=== PATIENT | male | born 1985 | race Native Hawaiian/Other Pacific Islander ===

== ENCOUNTER 2019-06-30 16:48 | Emergency (ER) | payer OTHER ==
[~2019-06-30] VITALS: Ht 188 cm; Wt 111.1 kg
[2019-06-30 18:08] VITALS: BP 157/100; TEMP 98.4
== END 2019-06-30 18:08 | disposition home or self-care (01) ==
LOC: ED 16:48
DX: S43.401A Unspecified sprain of right shoulder joint, initial encounter (principal); W51.XXXA Accidental striking against or bumped into by another person, initial encounter; Y35.811A Legal intervention involving manhandling, law enforcement official injured, initial encounter
CPT/HCPCS: 99282